=== PATIENT | female | born 1965 | race Caucasian/White ===

== ENCOUNTER → 2019-01-25 | Outpatient (CLI) | payer OTHER ==
[~2019-01-25] MED LIST: FLUO10; TRAZ100
== END | disposition home or self-care (01) ==
LOC: LAB SHORT 10:59 → LAB EV 10:59
DX: N39.0 Urinary tract infection, site not specified (principal)
CPT/HCPCS: 87077; 87086; 87186

== ENCOUNTER → 2022-07-23 | Outpatient (CLI) | payer OTHER | END | disposition home or self-care (01) | LOC: LAB SHORT 15:10 → LAB 15:10 | DX: J02.9 Acute pharyngitis, unspecified (principal) | CPT/HCPCS: 87081 ==

== ENCOUNTER 2023-05-04 08:51 | Day surgery (SDC) | payer OTHER ==
[~2023-05-04] VITALS: Ht 162.6 cm; Wt 100.1 kg
[2023-05-04] VITALS (13 sets, daily range): BP systolic 109–157; BP diastolic 53–76
[~2023-05-04 08:51] MED LIST changes: +ARTHRITIS PO; -FLUO10; +FLUO10 PO; +IBUP600 PO; +OLME5TAB PO; -TRAZ100; +TRAZ100 PO
--- NOTE | 2023-05-04 09:52 | NUR ---
History, Chart, Medications and Allergies reviewed before start of procedure. Lungs clear T/O to Auscultation. Patient confirms NPO status and agrees with scheduled surgery. Pre-Op teaching done. Pt verbalizes understanding. Patient reports completing Chlorhexadine shower X2 prior to admission to hospital.
--- NOTE | 2023-05-04 11:24 | NUR ---
05/04/23 1124 Sadaf Wagoner UPON ARRIVAL TO OR, SPINAL NERVE BLOCK COMPLETED BY DR MARQUEZ. PT TOLERATED WELL, VSS
--- NOTE | 2023-05-04 13:38 | NUR ---
PT ARRIVED TO THE ROOM AT 1309. PT ALERT AND ORIENTED UPON ARRIVAL. PT HAD SPINAL ANESTHESIA AND HAS DECREASED SENSATION/MOVEMENT TO BLE. PT HAS WEAK MOVEMENT OF LLE. PT DENIES NAUSEA. FAMILY AT BEDSIDE FOR SUPPORT. SURGICAL SITE WNL. EPIDURAL SITE WNL.
--- NOTE | 2023-05-04 16:12 | NUR ---
Patient is sitting up in bed and eating food. She tells me about the pain she has been enduring for the past 2yrs, the success of the surgery and her hopes for more mobility for the future. The patient talks about the solid family and friend support she has, as well as, the help from her [facility], [facility]. She shares about her three grown sons and their lives, about her strong Muslim juan pablo and her hopes for what she wishes to do once the knee is healed. I provide therapeutic listening and prayer. Patient responded well and showed signs of being encouraged for the recovery process and being inspired in her own belief system. I will continue to remain available to patient and family.
--- NOTE | 2023-05-04 18:33 | NUR ---
RENAL FUNCTION DECREASED RENAL FUNCTION PRIOR TO SURGERY, PT DENIES HISTORY OF CKD. CREATININE 1.12 AND GFR 57 OF APRIL 27, 2023. POLO TRUJILLO NOTIFIED. PER POLO GUERRA TO GIVE TORADOL PRN X2 DOSES. PT EDUCATED REGARDING RENAL FUNCTION AND TORADOL. PT REPORTS PAIN MANAGED AND DECLINED TORADOL. WILL CONTINUE TO MONITOR.
--- NOTE | 2023-05-04 19:27 | NUR ---
SHIFT SUMMARY PT IS POD#0 FROM L TKA WITH DR. ORTEGA. PAIN MANAGED WITH PO PAIN MEDICATION. PT TOLERATING PO. PT WORKED WITH THERAPY. SHE HAS VOIDED. REPORT GIVEN TO MARCUS TRINIDAD.
[2023-05-05 03:57] VITALS: BP 130/67
[2023-05-05 04:55] LABS: BASOPHILS ABSOLUTE AUTO 0.03 K/mm3 (0.00-0.23); BASOPHILS PERCENT AUTO 0 % (0-2); EOSINOPHILS PERCENT AUTO 0 % (0-6); Hematocrit 36.1 % (33.0-51.0); IMMATURE GRAN ABSOLUTE AUTO 0.08 K/mm3 (0.00-0.10); IMMATURE GRAN PERCENT AUTO 1 % (0-1); LYMPHOCYTES ABSOLUTE AUTO 1.35 K/mm3 (0.84-5.20); LYMPHOCYTES PERCENT AUTO 8 % (21-46); MONOCYTES ABSOLUTE AUTO 0.97 K/mm3 (0.16-1.47); MONOCYTES PERCENT AUTO 6 % (4-13); Mean Corpuscular HGB 28.2 pg (26.0-34.0); Mean Corpuscular HGB Conc 33.2 g/dL (31.5-36.5); Mean Corpuscular Volume 85 fL (80-100); Mean Platelet Volume 10.3 fL (9.1-12.4); NEUTROPHILS ABSOLUTE AUTO 14.24 K/mm3 (1.96-9.15); NEUTROPHILS PERCENT AUTO 85 % (41-73); Platelet Count 309 K/mm3 (150-400); RDW Coefficient Variation 12.5 % (11.7-14.2); RDW Standard Deviation 38.5 fL (35.1-46.3); Red Blood Cell Count 4.25 M/mm3 (3.80-5.20); White Blood Cell Count 16.67 K/mm3 (4.00-11.30)
--- NOTE | 2023-05-05 05:10 | NUR ---
SHIFT SUMMARY POD1 LEFT TKA. SENSATION AND CIRCULATION REMAIN INTACT IN LLE. DRESSING IS C/D/I. VSS. PT SLEPT ON AND OFF T/O THE NIGHT. AMBULATING WITH A SBA W/FWW AND GT BELT, VOIDING W/O DIFFICULTY, TOLLERATING PO INTAKE W/O N/V. NO ACUTE EVENTS NOTED T/O THE NIGHT. PLAN FOR PT TO WORK WITH PT AND D/C HOME. THE PATIENT IS CURRENTLY RESTING, IN NO DISTRESS, CALL LIGHT IN REACH
[2023-05-05 05:45] LABS: Bun/Creatinine Ratio 20.8 (12.0-20.0); Calcium, Blood 8.9 mg/dL (8.5-10.1); Creatinine, Blood 1.01 mg/dL (0.40-1.00); Potassium, Blood 4.1 mmol/L (3.5-5.5)
[2023-05-05 07:38] VITALS: BP 111/57
[2023-05-05 10:30] VITALS: BP 90/50
[2023-05-05 11:10] VITALS: BP 104/57
--- NOTE | 2023-05-05 12:00 | NUR ---
rx's sent with
[2023-05-05 12:24] VITALS: BP 128/60
[2023-05-05] MEDS ORDERED: ASPI81CH PO (12:26)
[2023-05-05] MEDS ORDERED: Percocet 5-3251 EACH PO (12:31)
--- NOTE | 2023-05-05 13:20 | NUR ---
Patient is in the d/c process and spouse, Clement is gathering her belongings. We talk about the recovery plan and all the support that she will have from Clement and friends. Clement shares about the family. I pray a blessing as they leave.
--- NOTE | 2023-05-05 13:32 | NUR ---
DISCHARGE PT HAS CLEARED THERAPY. PAIN WELL CONTROLLED PER EMAR. AQUACEL OVER INCISION, C/D/I. EATING, DRINKING, & VOIDING WELL. DISCUSSED DISCHARGE INSTRUCTIONS WITH PATIENT. DRESSINGS, DISCHARGE INSTRUCTIONS, & POLAR PACK SENT WITH PATIENT. ESCORTED OUT VIA W/C.
== END 2023-05-05 13:25 | disposition home or self-care (01) ==
LOC: ORSCMMR 08:51 → ORD 10:00 → SURS 13:02 → ORSCMMR 05-05 13:25
PROVIDERS: Orthopaedic Surgery
PROC: 0SRD0JA Replacement of Left Knee Joint with Synthetic Substitute, Uncemented, Open Approach (ICD-10-PCS; principal; 2023-05-04 10:00)
DX: M17.12 Unilateral primary osteoarthritis, left knee (principal); I10 Essential (primary) hypertension; E66.9 Obesity, unspecified; Z68.37 Body mass index [BMI] 37.0-37.9, adult; Z79.899 Other long term (current) drug therapy
CPT/HCPCS: 36415; 73560-LT; 80048; 85025; 97110; 97116; 97162; 97530; A9270; C1776; J0171; J0690; J0735; J1100; J1885; J2250; J2370; J2405; J2704; J2795; J3010; J7120

== ENCOUNTER → 2025-10-19 | Outpatient (CLI) | payer OTHER ==
[~2025-10-19] MED LIST changes: +ASPI81CH PO; +Percocet 5-3251 EACH PO
[2025-10-19 14:48] LABS: BASOPHILS ABSOLUTE AUTO 0.04 K/mm3 (0.00-0.23); BASOPHILS PERCENT AUTO 1 % (0-2); EOSINOPHILS ABSOLUTE AUTO 0.14 K/mm3 (0.00-0.68); EOSINOPHILS PERCENT AUTO 2 % (0-6); Hematocrit 40.4 % (33.0-51.0); Hemoglobin 13.5 g/dL (11.5-16.0); IMMATURE GRAN ABSOLUTE AUTO 0.02 K/mm3 (0.00-0.10); IMMATURE GRAN PERCENT AUTO 0 % (0-1); LYMPHOCYTES ABSOLUTE AUTO 1.84 K/mm3 (0.84-5.20); LYMPHOCYTES PERCENT AUTO 22 % (21-46); MONOCYTES ABSOLUTE AUTO 0.63 K/mm3 (0.16-1.47); MONOCYTES PERCENT AUTO 8 % (4-13); Mean Corpuscular HGB Conc 33.4 g/dL (31.5-36.5); Mean Corpuscular Volume 85 fL (80-100); NEUTROPHILS ABSOLUTE AUTO 5.78 K/mm3 (1.96-9.15); NEUTROPHILS PERCENT AUTO 68 % (41-73); NRBC ABSOLUTE 0.00 K/mm3 (0.00-0.02); NRBC Auto 0.0 /100 WBC (0.0-0.2); Platelet Count 270 K/mm3 (150-400); RDW Coefficient Variation 12.7 % (11.7-14.2); RDW Standard Deviation 39.5 fL (35.1-46.3)
[2025-10-19 15:26] LABS: Alanine Aminotransfer (ALT/SGP 36.0 U/L (12-78); Albumin, Blood 4.1 g/dL (3.4-5.0); Albumin/Globulin Ratio 1.1 (0.8-1.8); Anion Gap 8.0 mmol/L (3-11); Aspartate Aminotrans (AST/SGOT 19.0 U/L (12-37); Bilirubin, Total 0.4 mg/dL (0.1-1.0); Blood Urea Nitrogen 16.0 mg/dL (8-24); CO2, Blood 28.0 mmol/L (21-32); Calcium, Blood 9.5 mg/dL (8.5-10.1); Chloride, Blood 104.0 mmol/L (98-108); Creatinine, Blood 1.1 mg/dL (0.40-1.00); Globulin, Blood 3.8 g/dL (2.2-4.0); Glucose, Blood 102.0 mg/dL (70-99); Potassium, Blood 4.3 mmol/L (3.5-5.5); Sodium, Blood 136.0 mmol/L (136-145); Total Protein, Blood 7.9 g/dL (6.4-8.2)
== END ==
LOC: LAB 14:42 → LAB SHORT 14:42
PROVIDERS: Physician Assistant
DX: R10.11 Right upper quadrant pain (principal)
CPT/HCPCS: 80053; 83690; 84484; 85025